=== PATIENT | female | born 1990 | race American Indian/Alaskan Native ===

== ENCOUNTER 2016-02-10 11:50 | Emergency (ER) | payer SELFPAY ==
--- NOTE | 2016-02-10 12:20 | Emergency Department Report ---
Chief Complaint: Vaginal Bleeding Stated Complaint: 4 WKS PREG/BLEEDING Time Seen by Provider: 02/10/16 12:19 - HPI History of Present Illness: Patient here reports that she has sporadic vaginal spotting since January 22. She said that she was told at urgent care that she is 4 weeks denies any abdominal pain at present but says when she stands for long periods of time her abdomen hurts. She says she only notices blood patient right after urinating. Denies passing any clots. Denies any urinary burning frequency or urgency. 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 - ROS Review of Systems: All systems are negative unless stated in HPI above. - Exam Vital Signs: Vital Signs 02/10/16 12:06 Temperature 98.4 F Pulse Rate 91 H Blood Pressure 130/84 O2 Sat by Pulse 100 Oximetry Physical Exam: General: This is a 25-year-old female well-nourished well-developed nontoxic in appearance. CV: S1, S2. Regular rate and rhythm. Lungs:CTAB GI: soft, NTTP in all quadrants. no gaurdinding or rebound tenderness. negative CVA tenderness. NL bowel sounds MSE screening note: Focused history and physical exam performed. Due to findings the following was ordered:see mdm ED Medical Decision Making - Medical Decision Making Medical decision making: Patient seen by provider in triage area. Appropriate protocol activated and patient to main ED to be seen by physician. ED Disposition for MSE Condition: Stable
[2016-02-10 12:52] LABS: Basophils % (Auto) 0.8 % (0.0-1.8); Hematocrit 37.2 % (30.3-42.9); Hemoglobin 11.9 gm/dl (10.1-14.3); Mean Corpuscular HGB Conc 32 % (30-34); Mean Corpuscular Hemoglobin 27 pg (28-32); Mean Corpuscular Volume 83 fl (79-97); Platelet Count 343 K/mm3 (140-440); Red Blood Count 4.49 M/mm3 (3.65-5.03); Red Cell Distribution Width 15.2 % (13.2-15.2); White Blood Count 9.1 K/mm3 (4.5-11.0)
[2016-02-10 13:27] LABS: Bilirubin,Urine NEG (Negative); Blood,Urine SM (Negative); Ketones,Urine TR mg/dL (Negative); Leukocyte Esterase,Urine NEG (Negative); Mucus,Urine 3+ /HPF; Nitrite,Urine NEG (Negative); Protein,Urine <15 mg/dL mg/dL (Negative); Urobilinogen,Urine < 2.0 mg/dL (<2.0)
--- NOTE | 2016-02-10 15:00 | Ultrasound Report ---
OB ultrasound: Endovaginal and transabdominal imaging demonstrates an anteverted uterus measuring 5.6 x 5.9-10.5 cm. The endometrium is somewhat thick measuring 10 mm. It is relatively homogeneous and unremarkable. A minimal amount of fluid is identified in the cervical canal. The left ovary measures 5.2 cm in size there appears to be a 3.2 cm mass change both solid and cystic components. The right ovary measures 3.6 cm in size and is echogenically unremarkable. There is normal flow to the right ovary. There is minimal internal flow on the left. Impressions: There is no intra-or extrauterine identified at this time. Nonspecific left ovarian mass.
--- NOTE | 2016-02-10 21:37 | Emergency Department Report ---
ED General Adult HPI - General Chief complaint: Vaginal Bleeding Stated complaint: 4 WKS PREG/BLEEDING Time Seen by Provider: 02/10/16 12:19 Source: patient, RN notes reviewed Mode of arrival: Ambulatory Limitations: No Limitations - History of Present Illness Initial comments: This is a 25-year-old female, previously unknown to me. She is 4, para 1. Last menstrual period January 09. Presents to the ER with vaginal bleeding , and positive test. There is currently no abdominal pain. There is no vomiting. No fevers or chills. No chest pain or shortness of breath. Patient reports intermittent spotting since January 22. No care. No irritative or obstructive urinary symptoms. No syncope. Symptoms are constant. They have no exacerbating or relieving factors. She reports multiple episodes of chlamydia in the past, as well as one episode of gonorrhea at least. -: Gradual Severity scale (0 -10): 0 Consistency: constant Improves with: none, immobilization Associated Symptoms: denies: confusion, chest pain, cough, diaphoresis, fever/ chills, headaches, loss of appetite, malaise, nausea/vomiting, rash, seizure, shortness of breath, syncope, weakness - Related Data Allergies Allergy/AdvReac Type Severity Reaction Status Date / Time No Known Allergies Allergy Unverified 02/10/16 21:38 ED Review of Systems ROS: Stated complaint: 4 WKS PREG/BLEEDING Other details as noted in HPI Constitutional: denies: fever Eyes: denies: vision change ENT: denies: epistaxis Respiratory: denies: cough Cardiovascular: denies: chest pain Gastrointestinal: denies: abdominal pain Genitourinary: abnormal menses Musculoskeletal: denies: back pain Skin: denies: lesions Neurological: denies: headache ED Physical Exam - General Limitations: No Limitations General appearance: alert, in no apparent distress - Head Head exam: Present: atraumatic, normocephalic - Eye Eye exam: Present: normal appearance, EOMI. Absent: nystagmus - ENT ENT exam: Present: normal exam, normal orophraynx, mucous membranes moist - Neck Neck exam: Present: normal inspection, full ROM. Absent: tenderness, meningismus - Respiratory Respiratory exam: Present: normal lung sounds bilaterally. Absent: respiratory distress, wheezes, rales, rhonchi, stridor, chest wall tenderness - Cardiovascular Cardiovascular Exam: Present: regular rate, normal rhythm, normal heart sounds. Absent: bradycardia, tachycardia, irregular rhythm, systolic murmur, diastolic murmur, rubs, gallop - GI/Abdominal GI/Abdominal exam: Present: soft, normal bowel sounds. Absent: distended, tenderness, guarding, rebound, rigid, pulsatile mass - Extremities Exam Extremities exam: Present: normal inspection, full ROM, normal capillary refill. Absent: tenderness, pedal edema, joint swelling, calf tenderness - Back Exam Back exam: Present: normal inspection, full ROM. Absent: tenderness, CVA tenderness (R), CVA tenderness (L), muscle spasm, paraspinal tenderness, vertebral tenderness - Neurological Exam Neurological exam: Present: alert, oriented X3, normal gait, other (Extraocular movements intact. Tongue midline. No facial droop. Facial sensation intact to light touch in the V1, V2, V3 distribution bilaterally. 5 and 5 strength in 4 extremities.. Sensation is intact to light touch in 4 extremities.). Absent : motor sensory deficit - Psychiatric Psychiatric exam: Present: normal affect, normal mood - Skin Skin exam: Present: warm, dry, intact, normal color. Absent: rash ED Course Vital Signs 02/10/16 02/10/16 02/10/16 12:06 19:42 22:42 Temperature 98.4 F 98.1 F Pulse Rate 91 H 93 H 84 Respiratory 14 14 Rate Blood Pressure 130/84 Blood Pressure 152/86 136/81 [Left] O2 Sat by Pulse 100 99 100 Oximetry - Reevaluation(s) Reevaluation #1: 02/10/16 21:34 Differential diagnosis: , ectopic Assessment and plan: 25-year-old female with multiple episodes of gonorrhea and Chlamydia in the past, positive test, quantitative hCG in the 900s, and benign abdominal examination. There is no rebound, guarding or peritoneal signs. Ultrasound demonstrates minimal fluid in the cervical canal, with the left ovary that is 5.2 cm in size, with a 3.2 cm mass change which is both solid and cystic. The right ovary is essentially unremarkable. Minimal internal flow is noted to the left. There is no intrauterine or extrauterine identified at this time. Nonspecific left ovarian masses noted. Concern about unruptured ectopic . Additional laboratory studies ordered. I have a page placed to gynecology. Given concern for possible unruptured ectopic , I will defer gynecologic exam, as I do not want to possibly disrupt what may be a stable tubal at this time. Reevaluation #2: 02/10/16 21:39 Case is discussed with obstetrics on-call, Dr. Wilson. she also agrees with not performing a pelvic exam. She recommends the patient return in 48 hours for repeat ultrasound, and repeat quantitative hCG. I have already discussed this with the patient extensively. She is reliable, understands bleeding precautions, and return precautions. Comprehensive metabolic panel is ordered, in case the patient turns out to be a methotrexate candidate when she returns. She will be discharged at this time. Return precautions are extensively reviewed. 02/10/16 21:40 ED Medical Decision Making - Lab Data Result diagrams: 02/10/16 12:37 02/10/16 12:37 Vital Signs 02/10/16 02/10/16 12:06 19:42 Temperature 98.4 F 98.1 F Pulse Rate 91 H 93 H Respiratory 14 Rate Blood Pressure 130/84 Blood Pressure 152/86 [Left] O2 Sat by Pulse 100 99 Oximetry Labs 02/10/16 02/10/16 02/10/16 12:37 12:37 12:37 WBC 9.1 RBC 4.49 Hgb 11.9 Hct 37.2 MCV 83 MCH 27 L MCHC 32 RDW 15.2 Plt Count 343 Lymph % (Auto) 25.2 Ritchie % (Auto) 5.9 Eos % (Auto) 2.0 Baso % (Auto) 0.8 Lymph # 2.3 Ritchie # 0.5 Eos # 0.2 Baso # 0.1 Seg Neutrophils % 66.1 Seg Neutrophils # 6.0 HCG, Quant 936.2 H Urine Color Urine Turbidity Urine pH Ur Specific [place] Urine Protein Urine Glucose (UA) Urine Ketones Urine Blood Urine Nitrite Urine Bilirubin Urine Urobilinogen Ur Leukocyte Esterase Urine WBC (Auto) Urine RBC (Auto) U Epithel Cells (Auto) Urine Mucus Blood Type O POSITIVE Antibody Screen Negative 02/10/16 13:02 WBC RBC Hgb Hct MCV MCH MCHC RDW Plt Count Lymph % (Auto) Ritchie % (Auto) Eos % (Auto) Baso % (Auto) Lymph # Ritchie # Eos # Baso # Seg Neutrophils % Seg Neutrophils # HCG, Quant Urine Color Yellow Urine Turbidity Clear Urine pH 7.0 Ur Specific [place] 1.024 Urine Protein <15 mg/dl Urine Glucose (UA) Neg Urine Ketones Tr Urine Blood Sm Urine Nitrite Neg Urine Bilirubin Neg Urine Urobilinogen < 2.0 Ur Leukocyte Esterase Neg Urine WBC (Auto) 1.0 Urine RBC (Auto) 1.0 U Epithel Cells (Auto) 3.0 Urine Mucus 3+ Blood Type Antibody Screen - Radiology Data Radiology results: report reviewed, image reviewed Abdominal ultrasound demonstrates no evidence of intra-or extrauterine . There is a nonspecific left-sided ovarian mass. Critical care attestation.: If time is entered above; I have spent that time in minutes in the direct care of this critically ill patient, excluding procedure time. ED Disposition Clinical Impression: Vaginal bleeding, Disposition: DISCHARGED TO HOME OR SELFCARE Is pt being admited?: No Does the pt Need Aspirin: No Condition: Stable Instructions: Ectopic (ED), Threatened Miscarriage (ED) Additional Instructions: Laboratory studies indicated that you are . The ultrasound did not demonstrate a definite intrauterine . Possibilities include early intrauterine that is not visualized versus more likely unruptured ectopic , which is a outside the uterus. Rest and avoid heavy lifting. Avoid strenuous activity. Do not engage in sex. Follow up in 48 hours for a repeat quantitative hCG blood test, and repeat ultrasound. If you develops severe abdominal pain, dizziness, lightheadedness, chest pain, shortness of breath, or loss of consciousness/passing out, contact 911 and return to the ER right away. attached are numerous names, phone numbers, addresses of local [employer] doctors. I recommend that you follow-up with any one of them within the next week. Referrals: ALIDA CHEN MD [Primary Care Provider] - 3-5 Days TRISTA WILSON MD [Staff Physician] - 3-5 Days VON PARTIDA MD [Staff Physician] - 3-5 Days DACIA LYONS MD [Staff Physician] - 3-5 Days
[2016-02-10 22:07] LABS: Alanine Aminotransferase 9 units/L (7-56); Albumin 4.2 g/dL (3.9-5); Albumin/Globulin Ratio 1.5 %; Alkaline Phosphatase 60 units/L (35-129); BUN/Creatinine Ratio 16.66; Bilirubin,Total 0.3 mg/dL (0.1-1.2); Blood Urea Nitrogen 10 mg/dL (7-17); Calcium 8.8 mg/dL (8.4-10.2); Carbon Dioxide 23 mmol/L (22-30); Chloride 102.5 mmol/L (98-107); Glucose 103 mg/dL (65-100); Potassium 3.8 mmol/L (3.6-5.0); Sodium 142 mmol/L (137-145)
[2016-02-10 22:08] LABS: Anion Gap 20 mmol/L
[2016-02-10 22:43] VITALS: BP 136/81
== END 2016-02-10 22:45 | disposition home or self-care (01) ==
LOC: ED 11:50
DX: O20.9 Hemorrhage in early pregnancy, unspecified (principal); Z3A.01 Less than 8 weeks gestation of pregnancy
CPT/HCPCS: 36415; 76801; 76817; 80053; 81001; 84702; 85025; 86850; 86900; 86901